=== PATIENT | female | born 1970 | race Caucasian/White ===

== ENCOUNTER → 2018-03-10 | Outpatient (CLI) | payer BC ==
--- NOTE | 2018-03-12 07:32 | WOMENS IMAGING REPORT ---
EXAM DESCRIPTION: 3D DX MAMMO BILAT; U/S BREAST UNILAT LIMITED COMPLETED DATE/TIME: 03/10/2018 10:43 am; 03/10/2018 10:42 am REASON FOR STUDY: SUBCUTANEOUS CYST; CYST OF SUBCUTANEOUS TISSUE; L72.9 L72.9 FOLLICULAR CYST OF TH E SKIN AND SUBCUTANEOUS TISSUE, U COMPARISON: Mammograms and ultrasound 06/15/2012 TECHNIQUE: Standard craniocaudal and mediolateral oblique views of each breast recorded using digita l acquisition and breast tomosynthesis. Additional right breast diagnostic mammogram and tomosynthesis Right breast ultrasound was also performed. LIMITATIONS: None. FINDINGS: RIGHT BREAST MASSES: 2 cm smooth well circumscribed mass right retroareolar breast with pleomorphic calcification s. This is solid at ultrasound, with internal color flow likely a papilloma or fibroadenoma. Howeve r, this is larger than in 2012 with increasing calcifications, and atypia or malignant change cannot be excluded. Ultrasound guided biopsy with post biopsy clip placement and follow up two view mammogr am recommended for follow up. CALCIFICATIONS: No new or suspicious calcifications. ARCHITECTURAL DISTORTION: None. DEVELOPING DENSITY: None. ASYMMETRY: None noted. OTHER: No other significant findings. LEFT BREAST MASSES: No suspicious masses. CALCIFICATIONS: No new or suspicious calcifications. ARCHITECTURAL DISTORTION: None. DEVELOPING DENSITY: None. ASYMMETRY: None noted. OTHER: No other significant finding. Read with the assistance of CAD: .[facility] - R2 Cenova Version 1.3 .[facility] - R2 Cenova Version 1.3 .[facility] - R2 Cenova Version 2.4 .[facility] - R2 Cenova Version 2.4 .[facility] - R2 Conveyor Maintenance Mechanic Version 9.2 Right breast ultrasound: At solid well circumscribed right retroareolar nodule is present, 2.3 x 1 cm in size. There is inter nal color flow. Calcifications are seen at ultrasound. This is likely a papilloma or fibroadenoma. However, this is larger than in 2012 with increasing calcifications, and atypia or malignant change cannot be excluded. Ultrasound guided biopsy right retroareolar nodule with post biopsy clip placeme nt and follow up two view mammogram recommended for follow up IMPRESSION: Right breast solid retroareolar nodule, for which ultrasound guided biopsy with post bio psy clip placement and follow up two view mammogram recommended for follow up No mammographic/tomosynthesis evidence for malignancy, left breast BREAST DENSITY: b. There are scattered areas of fibroglandular density. BIRAD: 4 Suspicious. Biopsy should be considered. RECOMMENDATION: RECOMMENDED FOLLOW UP: Ultrasound guided biopsy right retroareolar nodule with post biopsy clip placement and follow up two view mammogram recommended for follow up SPECIFIC INTERVENTION/IMAGING/CONSULTATION RECOMMENDED:Ultrasound guided biopsy right retroareolar no dule with post biopsy clip placement and follow up two view mammogram recommended for follow up COMMUNICATION:Patient notified by letter. COMMENT: The patient has been notified of the results by letter per [place] requirements. Additional no tification policies are in place for contacting patient with suspicious or incomplete findings. Quality ID #[id number]: The [employer] recommends an annual screening mammogram for women aged 40 years or over. This facility utilizes a reminder system to ensure that all patients receive reminder letters, and/or direct phone calls for appointments. This includes reminders for routine scr eening mammograms, diagnostic mammograms, or other Breast Imaging Interventions when appropriate. Th is patient will be placed in the appropriate reminder system. The [employer] (ACR) has developed recommendations for screening MRI of the breast s in certain patient populations, to be used in conjunction with mammography. Breast MRI surveillanc e may be appropriate for women with more than 20% lifetime risk of developing breast cancer as deter mined by genetic testing, significant family history of the disease, or history of mantle radiation f or Hodgkins Disease. ACR Practice Guidelines 2008. DBT Technology DBT is a type of tomographic mammography. With conventional mammography, overlapping breast tissue ma y make lesions difficult to detect, even with good compression. DBT uses an x-ray tube that rotates a round the breast, taking images at different angles. These images are then combined to create thin sl ices of the breast that the radiologist can view as a 3D reconstruction. The [employer] unit can perform full-field digital mammograms (2D imaging); or DBT (3D imaging); or both, in a combination mode that quickly performs both the mammogram and the tomosynthesis scan while the breast is still compressed. PQRS 6045F: Fluoroscopic imaging is not utilized for breast tomosynthesis. TECHNICAL DOCUMENTATION: FINDING NUMBER: (1) ASSESSMENT: (1) JOB ID: [id number] [employer]- All Rights Reserved Reading location - IP/workstation name: [email or web address] [id number]
--- NOTE | 2018-03-12 07:32 | WOMENS IMAGING REPORT ---
EXAM DESCRIPTION: 3D DX MAMMO BILAT; U/S BREAST UNILAT LIMITED COMPLETED DATE/TIME: 03/10/2018 10:43 am; 03/10/2018 10:42 am REASON FOR STUDY: SUBCUTANEOUS CYST; CYST OF SUBCUTANEOUS TISSUE; L72.9 L72.9 FOLLICULAR CYST OF TH E SKIN AND SUBCUTANEOUS TISSUE, U COMPARISON: Mammograms and ultrasound 06/15/2012 TECHNIQUE: Standard craniocaudal and mediolateral oblique views of each breast recorded using digita l acquisition and breast tomosynthesis. Additional right breast diagnostic mammogram and tomosynthesis Right breast ultrasound was also performed. LIMITATIONS: None. FINDINGS: RIGHT BREAST MASSES: 2 cm smooth well circumscribed mass right retroareolar breast with pleomorphic calcification s. This is solid at ultrasound, with internal color flow likely a papilloma or fibroadenoma. Howeve r, this is larger than in 2012 with increasing calcifications, and atypia or malignant change cannot be excluded. Ultrasound guided biopsy with post biopsy clip placement and follow up two view mammogr am recommended for follow up. CALCIFICATIONS: No new or suspicious calcifications. ARCHITECTURAL DISTORTION: None. DEVELOPING DENSITY: None. ASYMMETRY: None noted. OTHER: No other significant findings. LEFT BREAST MASSES: No suspicious masses. CALCIFICATIONS: No new or suspicious calcifications. ARCHITECTURAL DISTORTION: None. DEVELOPING DENSITY: None. ASYMMETRY: None noted. OTHER: No other significant finding. Read with the assistance of CAD: .[facility] - R2 Cenova Version 1.3 .[facility] - R2 Cenova Version 1.3 .[facility] - R2 Cenova Version 2.4 .[facility] - R2 Cenova Version 2.4 .[facility] - R2 Drama Director Version 9.2 Right breast ultrasound: At solid well circumscribed right retroareolar nodule is present, 2.3 x 1 cm in size. There is inter nal color flow. Calcifications are seen at ultrasound. This is likely a papilloma or fibroadenoma. However, this is larger than in 2012 with increasing calcifications, and atypia or malignant change cannot be excluded. Ultrasound guided biopsy right retroareolar nodule with post biopsy clip placeme nt and follow up two view mammogram recommended for follow up IMPRESSION: Right breast solid retroareolar nodule, for which ultrasound guided biopsy with post bio psy clip placement and follow up two view mammogram recommended for follow up No mammographic/tomosynthesis evidence for malignancy, left breast BREAST DENSITY: b. There are scattered areas of fibroglandular density. BIRAD: 4 Suspicious. Biopsy should be considered. RECOMMENDATION: RECOMMENDED FOLLOW UP: Ultrasound guided biopsy right retroareolar nodule with post biopsy clip placement and follow up two view mammogram recommended for follow up SPECIFIC INTERVENTION/IMAGING/CONSULTATION RECOMMENDED:Ultrasound guided biopsy right retroareolar no dule with post biopsy clip placement and follow up two view mammogram recommended for follow up COMMUNICATION:Patient notified by letter. COMMENT: The patient has been notified of the results by letter per [place] requirements. Additional no tification policies are in place for contacting patient with suspicious or incomplete findings. Quality ID #[id number]: The [employer] recommends an annual screening mammogram for women aged 40 years or over. This facility utilizes a reminder system to ensure that all patients receive reminder letters, and/or direct phone calls for appointments. This includes reminders for routine scr eening mammograms, diagnostic mammograms, or other Breast Imaging Interventions when appropriate. Th is patient will be placed in the appropriate reminder system. The [employer] (ACR) has developed recommendations for screening MRI of the breast s in certain patient populations, to be used in conjunction with mammography. Breast MRI surveillanc e may be appropriate for women with more than 20% lifetime risk of developing breast cancer as deter mined by genetic testing, significant family history of the disease, or history of mantle radiation f or Hodgkins Disease. ACR Practice Guidelines 2008. DBT Technology DBT is a type of tomographic mammography. With conventional mammography, overlapping breast tissue ma y make lesions difficult to detect, even with good compression. DBT uses an x-ray tube that rotates a round the breast, taking images at different angles. These images are then combined to create thin sl ices of the breast that the radiologist can view as a 3D reconstruction. The [employer] unit can perform full-field digital mammograms (2D imaging); or DBT (3D imaging); or both, in a combination mode that quickly performs both the mammogram and the tomosynthesis scan while the breast is still compressed. PQRS 6045F: Fluoroscopic imaging is not utilized for breast tomosynthesis. TECHNICAL DOCUMENTATION: FINDING NUMBER: (1) ASSESSMENT: (1) JOB ID: [id number] [employer])- All Rights Reserved Reading location - IP/workstation name: [email or web address] [id number]
== END ==
LOC: WI 08:43
PROVIDERS: ATTEND Family Medicine
DX: N63.41 Unspecified lump in right breast, subareolar (principal)
CPT/HCPCS: 76642; 77066; G0279; 77062

== ENCOUNTER → 2018-03-16 | Day surgery (SDC) | payer BC ==
[~2018-03-16] MED LIST: LIDOCAINE 2% INJ (20 MG/ML) 20 ML MDV ONE
== END ==
LOC: WI 09:57
PROVIDERS: ATTEND Family Medicine
DX: N60.01 Solitary cyst of right breast (principal)
CPT/HCPCS: 88307 ×2; 19083; J3490